=== PATIENT | male | born 1985 | race Hispanic/Latino ===

== ENCOUNTER 2023-08-31 23:27 | Emergency (ER) | payer OTHER ==
[~2023-08-31] VITALS: Ht 177.8 cm; Wt 90.7 kg
[2023-09-01] MEDS: KETOROLAC 60 MG VIAL (30MG/ML) IM ONE (00:09)
[2023-09-01] MEDS: TETANUS/DIPHTHERIA TOXOID [ADULT] 0.5 ML VIAL IM ONE (00:11)
[2023-09-01] MEDS: OCTYL 2-CYANOACRYLATE 1 EACH TP ONE (03:11)
[2023-09-01] MEDS: LIDOCAINE HCL 1% 20 ML VIAL ONE (03:11)
[2023-09-01] MEDS ORDERED: IBUP-2070 PO (03:18)
[2023-09-01 03:28] VITALS: BP 119/72; PULSE 77; RESP 16; O2SAT 98
== END 2023-09-01 03:32 ==
LOC: EDH 23:27
DX: S02.2XXA Fracture of nasal bones, initial encounter for closed fracture (principal); S05.41XA Penetrating wound of orbit with or without foreign body, right eye, initial encounter; H11.31 Conjunctival hemorrhage, right eye; X58.XXXA Exposure to other specified factors, initial encounter; Y93.89 Activity, other specified; Y92.89 Other specified places as the place of occurrence of the external cause; Y99.8 Other external cause status
CPT/HCPCS: 99285; 70486; 90714; 90471; 12014; 96372; J1885